=== PATIENT | male | born 1955 | race Caucasian/White ===

== ENCOUNTER 2018-07-10 21:33 | Emergency (ER) | payer OTHER ==
[~2018-07-10] VITALS: Ht 170.2 cm; Wt 95.0 kg
[2018-07-10 21:48] VITALS: Ht 170.2 cm; Wt 95.0 kg
--- NOTE | 2018-07-11 00:35 | ERD ---
ER Documentation Chief Complaint Chief Complaint RIGHT FOOT WOUND WITH HARD CAST IN PLACE & ACCUCHECK 386 HPI The patient is a 62-year-old male, presenting to the ER from a detox center because of right foot pain for 1 week; he had fracture of the right tibia and fibula according to him, has had a cast for the last 3-1/2 weeks; he is supposed to have it for a total of 4 weeks. He might have let the water run into his foot. He denies fever, chills, neck pain, chest pain, dyspnea, abdominal pain, vomiting, dysuria. He smokes and drinks Medical history: Diabetes mellitus, history of SVT Past History: Cholecystectomy ROS All systems reviewed and are negative except as per history of present illness. Medications Home Meds Active Scripts Ibuprofen* (Motrin*) 600 Mg Tab, 600 MG PO Q6H PRN for PAIN, #20 TAB Prov:PRICILLA PERSON MD 07/11/18 Cephalexin* (Keflex*) 500 Mg Capsule, 500 MG PO Q6, #40 CAP Prov:PRICILLA PERSON MD 07/11/18 Reported Medications Mirtazapine* (Remeron*) 30 Mg Tablet, 30 MG PO HS, TAB 07/11/18 Atenolol* (Atenolol*) 50 Mg Tablet, 50 MG PO QAM, #30 TAB 07/11/18 Insulin Aspart* (Novolog Insulin Pen*) 100 Unit/Ml Soln, 15 UNIT SC AC E, EA 07/11/18 Insulin Glargine* (Lantus*) 100 Unit/Ml Soln, 55 UNIT SC QAM, #1 VIAL 07/11/18 Allergies Allergies: Coded Allergies: tetracycline (Unverified Allergy, Intermediate, SOB; ANAPHYLACTIC SHOCK, 07/11/18) Physical Exam Vitals Vital Signs Date Temp Pulse Resp B/P (MAP) Pulse Ox O2 O2 Flow FiO2 Time Delivery Rate 07/11/18 90 24 135/77 97 Room Air 00:45 (96) 07/10/18 99.2 98 18 178/91 96 21:48 (120) Physical Exam Const: No acute distress. Head: Atraumatic. Eyes: Normal Conjunctiva. ENT: Normal External Ears, Nose and Mouth. Neck: Full range of motion. No meningismus. Resp: Clear to auscultation bilaterally. Cardio: Regular rate and rhythm. Abd: Soft, non distended, normal bowel sounds, non tender. Skin: No petechiae or rashes. Back: No midline or flank tenderness. Ext: Right great toe is erythematous and edematous, mild right calf tenderness Neur: Awake and alert. No focal deficit Psych: Normal Mood and Affect. Result Diagram: 07/11/18 0100 07/11/18 0100 Results 24 hrs Laboratory Tests Test 07/10/18 21:46 07/11/18 00:53 07/11/18 01:00 07/11/18 01:18 Bedside Glucose 386 mg/dL 274 mg/dL Blood Gas Blood venous Specimen Source Arterial Blood 07/11/2018 1:24: Date Drawn 19 AM Arterial Blood VENOUS LINE Gas Puncture Site Pradeep Test N/A Venous Blood pH 7.436 Venous Blood 37.3 mmHG pCO2 (Temp Corrected ) Venous Blood 42.7 mmHG pO2 (Temp Corrected ) Venous Blood 24.5 mmol/L HCO3 Venous Blood 80.7 mmHG Oxygen Saturation Venous Blood 0.6 mmol/L Base Excess Venous Blood 15.1 g/dl Total Hemoglobin Venous Blood 78.0 % Oxyhemoglobin Venous Blood 0.3 % Methemoglobin Carboxyhemoglob 3.0 % in Blood Gas 37.0 C Temperature Blood Gas ROOM AIR Modality FiO2 21.0 % Blood Gas MG Notified Whom Blood Gas 07/11/2018 1:30: Notified Time 01 AM White Blood 8.4 10^3/ul Count Red Blood Count 4.46 10^6/ul Hemoglobin 14.2 g/dl Hematocrit 41.9 % Mean 93.9 fl Corpuscular Volume Mean 31.8 pg Corpuscular Hemoglobin Mean 33.9 g/dl Corpuscular Hemoglobin Conc ent Red Cell 14.6 % Distribution Width Platelet Count 134 10^3/UL Mean Platelet 10.5 fl Volume Immature 0.200 % Granulocytes % Neutrophils % 44.2 % Lymphocytes % 36.7 % Monocytes % 11.6 % Eosinophils % 6.7 % Basophils % 0.6 % Nucleated Red 0.0 /100WBC Blood Cells % Immature 0.020 10^3/ul Granulocytes # Neutrophils # 3.7 10^3/ul Lymphocytes # 3.1 10^3/ul Monocytes # 1.0 10^3/ul Eosinophils # 0.6 10^3/ul Basophils # 0.1 10^3/ul Nucleated Red 0.0 10^3/ul Blood Cells # Sodium Level 143 mmol/L Potassium Level 4.8 mmol/L Chloride Level 114 mmol/L Carbon Dioxide 24 mmol/L Level Anion Gap 5 Blood Urea 12 mg/dl Nitrogen Creatinine 0.56 mg/dl Est Glomerular > 60 mL/min Filtrat Rate mL/min Glucose Level 300 mg/dl Calcium Level 9.1 mg/dl Phosphorus 4.0 mg/dl Level Magnesium Level 1.9 mg/dl Test 07/11/18 02:04 Urine Color YELLOW Urine Clarity CLEAR Urine pH 5.0 Urine Specific 1.036 Jackson Urine Ketones TRACE mg/dL Urine Nitrite NEGATIVE mg/dL Urine Bilirubin NEGATIVE mg/dL Urine NEGATIVE mg/dL Urobilinogen Urine Leukocyte NEGATIVE Luis Antonio/ul Esterase Urine 4 /HPF Microscopic RBC Urine 1 /HPF Microscopic WBC Urine Bacteria FEW /HPF Urine 1+ mg/dL Hemoglobin Urine Glucose 3+ mg/dL Urine Total 1+ mg/dl Protein Current Medications Medications Dose Sig/Stacey Start Time Status Last (Trade) Ordered Route PRN Stop Time Admin Dose Reason Admin Sodium 950 ml @ ONCE ONCE 07/11/18 DC 07/11/18 Chloride 950 mls/hr IV 01:00 01:22 07/11/18 01:59 Ketorolac 30 mg ONCE ONCE 07/11/18 DC 07/11/18 Tromethamine IV 01:30 01:46 (Toradol) 07/11/18 01:31 Procedures/[place] [id number] Radiology Main Line: [phone] DIAGNOSTIC IMAGING REPORT Patient: NADEEM JADE : 1955 Age: 62 Sex: M [id number] DOS: 07/11/18 0155 Ordering MD: PRICILLA PERSON MD Location: E/R Room/Bed: PROCEDURE: Ultrasound examination of the right lower extremity with Doppler. CLINICAL INDICATION: Right leg pain and swelling. TECHNIQUE: Multiple sonographic images of the right lower extremity were performed with de luna scale and color Doppler. COMPARISON: None. FINDINGS: The right common femoral, superficial femoral and popliteal veins demonstrate normal color flow, waveforms, compression and response augmentation. There is no evidence of deep venous thrombosis. IMPRESSION: No evidence of deep venous thrombosis within the right lower extremity. .Dani Gutiérrez MD, MD Date Time Electronically viewed and signed by .Dani Gutiérrez MD, MD on 07/11/2018 02:18 .T/ CC: PRICILLA PERSON MD [phone] MEDICAL MAKING DECISION: The patient is a 62-year-old male, presenting with acute right foot cellulitis, acute diabetic hyperglycemia. He was treated with normosaline 10 mm/kg IV for acute diabetic hyperglycemia, Toradol 30 mg IV for pain, Keflex 500 mg p.o. for acute right foot cellulitis with good response, is stable for outpatient follow-up. The cast was removed by the EMT, the exam was done after the cast was removed He was then treated with a posterior splint and crutches The differential diagnoses considered include but are not limited to cellulitis, DVT, compartment syndrome Departure Diagnosis: Primary Impression: Cellulitis Additional Impressions: Hyperglycemia Thrombocytopenia Condition: Good Comments He was discharged with Keflex The patient's blood pressure was elevated (>120/80) but appears stable without evidence of hypertension emergency or urgency. The patient was counseled about the risks of hypertension and urged to pursue outpatient monitoring and therapy within a week with their primary care physician. I discussed the findings with the patient. I advised the patient to follow-up with the on-call orthopedist Dr. Enciso in about 2-3 days reevaluation, whether he needed to be in the cast, sooner if needed and return if any concern. Disclaimer: Inadvertent spelling and grammatical errors are likely due to EHR/dictation software use and do not reflect on the overall quality of patient care. Also, please note that the electronic time recorded on this note does not necessarily reflect the actual time of the patient encounter. PRICILLA PERSON MD Jul 11, 2018 00:35
[2018-07-11] MEDS ORDERED: SOD CHLORIDE 0.9% 950 ML IV ONE (01:00)
[2018-07-11] MEDS ORDERED: KETOROLAC 30 MG INJ IV ONE (01:30)
[2018-07-11] MEDS ORDERED: NOVO3I SC (03:57)
[2018-07-11] MEDS ORDERED: LANT3I SC (03:57)
[2018-07-11] MEDS ORDERED: ATEN50TA PO (03:59)
[2018-07-11] MEDS ORDERED: MIRT30TA PO (03:59)
[2018-07-11] MEDS ORDERED: CEPH-443 PO (04:00)
[2018-07-11] MEDS ORDERED: IBUP-1542 PO (04:00)
[2018-07-11 04:18] VITALS: BP 133/88; PULSE 84; RESP 16
[2018-07-11] MEDS ORDERED: CEPHALEXIN 500 MG CAP PO ONE (04:30)
== END 2018-07-11 04:20 | disposition home or self-care (01) ==
LOC: E/R 21:33
DX: L03.115 Cellulitis of right lower limb (principal); D69.6 Thrombocytopenia, unspecified; E11.65 Type 2 diabetes mellitus with hyperglycemia; Z79.4 Long term (current) use of insulin
CPT/HCPCS: 36415; 80048; 81001; 82803; 82962; 83735; 84100; 85025; 93971; 96374; 99285; J1885; J7030